=== PATIENT | born 1975 ===

== ENCOUNTER 2022-01-04 10:11 | Outpatient (REF) | payer SELFPAY ==
[2022-01-04 10:29] LABS: MANUAL DIFF FLAG NO
[2022-01-04 10:33] LABS: Basophils Absolute Auto 0.1 X10*3/uL; Basophils Percent Auto 0.8 %; Eosinophils Absolute Auto 0.2 X10*3/uL; Hematocrit 39.5 %; Hemoglobin 12.4 g/dl; Imm Gran Abs Auto 0.03 X10*3/uL (0.00-0.03); Imm Gran Pct Auto 0.3 % (0.0-0.4); Lymphocytes Absolute Auto 1.8 X10*3/uL; Lymphocytes Percent Auto 18.1 %; Mean Corpuscular HGB Conc 31.4 g/dl; Mean Corpuscular Volume 85.9 fL; Mean Platelet Volume 9.9 fL (9.4-12.4); Monocytes Absolute Auto 0.8 X10*3/uL; Monocytes Percent Auto 8.1 %; Neutrophils Percent Auto 70.7 %; Platelet Count 777 X10*3/uL; Red Cell Distribution Width 14.3 % (11.0-16.0); White Blood Count 9.9 X10*3/uL
[2022-01-04 12:53] LABS: Vancomycin Trough 15.9 mcg/mL
[2022-01-04 13:10] LABS: Anion Gap 15; Blood Urea Nitrogen 15 mg/dL; Calcium 9.7 mg/dL; Carbon Dioxide 25 mmol/L; Chloride 102 mmol/L; Estimated Glomerular Filt Rate > 60; Glucose Random 98 mg/dL; Potassium 5.1 mmol/L; Sodium 137 mmol/L
== END 2022-01-04 10:12 | disposition home or self-care (01) ==
LOC: HO.LNP 10:11
PROVIDERS: Visit Provider Physician Assistant Surgical
DX: K68.11 Postprocedural retroperitoneal abscess (principal); Z79.899 Other long term (current) drug therapy
CPT/HCPCS: 80048; 80202; 85025